=== PATIENT | male | born 1985 | race Caucasian/White ===

== ENCOUNTER 2016-09-19 09:58 | Emergency (ER) | payer OTHER ==
--- NOTE | ~2016-09-19 | CR63 ---
[facility] A Service of [facility] & [facility] RADIOLOGY TEXT RESULTS PATIENT: RENATA MATSON LOCATION: SED : 81 UNIT #: [id number] AGE: [address]: Alvin Palacio MD SEX: M ORDER DR: [id number] [place] [id number] E MR#: [id number] Acc #: [id number] NAME: RENATA MATSON : 1985 SEX: M STUDY DATE/TIME: 09/19/2016 10:26 UNIT: SED ROOM: STUDY DESCRIPTION: CR Chest 2 View Attending Physician: Alvin Palacio M.D. Ordering Physician: Alvin Palacio M.D. Primary Care Physician: No Primary Care Physician MEDICAL IMAGING REPORT This report is preliminary unless electronic signature is present. EXAM PA and lateral chest 09/19/16 COMPARISON 05/05/2011 HISTORY Low back pain and right lateral rib pain, shortness of breath since this morning. FINDINGS PA and lateral views are obtained. The cardiovascular configuration is normal. The lungs are clear. CONCLUSION Normal chest Dictated by... Diego Daniels M.D. THIS IS AN ELECTRONICALLY VERIFIED REPORT Diego Daniels M.D. at 09/22/2016 7:21 AM Kem TD: 09/19/2016 13:08 JOB #: [id number] MEDICAL IMAGING REPORT Page 1 of 1
--- NOTE | ~2016-09-19 | CT4 ---
[facility] A Service of [facility] RADIOLOGY TEXT RESULTS PATIENT: RENATA MATSON LOCATION: SED : 83 UNIT #: [id number] AGE: [address]: Alvin Palacio MD SEX: M ORDER DR: [id number] [place] [id number] E MR#: [id number] Acc #: [id number] NAME: RENATA MATSON : 1985 SEX: M STUDY DATE/TIME: 09/19/2016 10:25 UNIT: SED ROOM: STUDY DESCRIPTION: CT Abd and Pelv Wo Cont Attending Physician: Alvin Palacio M.D. Ordering Physician: Alvin Palacio M.D. Primary Care Physician: No Primary Care Physician MEDICAL IMAGING REPORT This report is preliminary unless electronic signature is present. EXAM CT of the abdomen and pelvis without contrast media. HISTORY Low back pain and right lateral rib pain. Shortness of breath beginning this morning. TECHNIQUE Axial imaging of the abdomen and pelvis was performed without contrast media. This CT exam was performed with one or more of the following radiation dose reduction techniques: automatic exposure control, adjustment of mA and/or kV according to patient size, and iterative reconstruction. FINDINGS Lung bases are unremarkable. Scans through the liver are normal. There is a gallstone dependently in the gallbladder. The gallbladder wall is not thickened. The spleen is normal. The adrenal glands are normal, and the pancreas is normal. Both the right and left kidney are normal. No dilated or thickened loops of bowel are seen. The appendix is normal. Scans were continued through the pelvis. There is mild sigmoid diverticulosis. There is no convincing evidence of diverticulitis. Bladder is unremarkable. Prostate and seminal vesicles appear normal. The lumbar spine appears unremarkable. Bone windows are reviewed. There are no right lateral rib fractures. CONCLUSION Cholelithiasis. CT of the abdomen and pelvis is otherwise negative. [facility] A Service of [facility] RADIOLOGY TEXT RESULTS PATIENT: RENATA MATSON LOCATION: SED : 83 UNIT #: [id number] AGE: [address]: Alvin Palacio MD SEX: M ORDER DR: Dictated by... Diego Daniels M.D. THIS IS AN ELECTRONICALLY VERIFIED REPORT Diego Daniels M.D. at 09/22/2016 7:21 AM Wally TD: 09/19/2016 12:48 JOB #: [id number] MEDICAL IMAGING REPORT Page 1 of 1
[2016-09-19 09:56] LABS: URINE SOURCE CLEAN CATCH
[2016-09-19 09:58] LABS: URINE APPEARANCE CLEAR; URINE BILIRUBIN NEG (NEG); URINE BLOOD NEG (NEG); URINE COLOR YELLOW; URINE GLUCOSE NEG (NORM); URINE KETONE NEG (NEG); URINE LEUKOCYTE ESTERASE NEG (NEG); URINE NITRATE NEG (NEG); URINE PROTEIN NEG (NEG); URINE SPECIFIC GRAVITY 1.015 (1.003-1.035); URINE UROBILINOGEN 0.2 MG/DL (NORM)
[~2016-09-19 09:58] MED LIST: BLOOD PRESSURE MED?; CORTISPORIN-TC10 ML OT; E-MYCIN250 MG PO; IBUPROFEN PO; MOTRIN400 MG PO; NEOMYCIN; NO MEDICATIONS; POLYMYXIN; ULTRAM PO; VOLTAREN75 MG PO
[2016-09-19 10:00] LABS: MICRO INDICATED? NO
[2016-09-19 10:34] LABS: AMPHETAMINE POS (NEG); BARBITURATES NEG (NEG); BENZODIAZEPINES NEG (NEG); COCAINE NEG (NEG); MARIJUANA NEG (NEG); OPIATES NEG (NEG); TRICYCLIC ANTIDEPRESSANTS NEG (NEG); U METHADONE NEG (NEG)
== END 2016-09-19 11:29 | disposition home or self-care (01) ==
LOC: SED 09:58
PROVIDERS: Emergency Medicine
DX: J20.9 Acute bronchitis, unspecified (principal); M51.37 Other intervertebral disc degeneration, lumbosacral region; R10.9 Unspecified abdominal pain; I10 Essential (primary) hypertension; K21.9 Gastro-esophageal reflux disease without esophagitis; J45.909 Unspecified asthma, uncomplicated; Z88.0 Allergy status to penicillin; F17.210 Nicotine dependence, cigarettes, uncomplicated
CPT/HCPCS: 71020; 74176; 80307; 81003; 94640; 99284